=== PATIENT | female | born 1950 | race Caucasian/White ===

== ENCOUNTER 2022-10-25 16:01 | Emergency (ER) | payer OTHER, SELFPAY ==
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
[2022-10-25 16:05] VITALS: BP 182/100; PULSE 82; O2SAT 98
[2022-10-25 16:10] VITALS: BP 190/101; PULSE 79; RESP 18; TEMP 36.8; O2SAT 98; BMI 24.3
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
[2022-10-25] MEDS: Diphth,Pertus(ACell),Tet Adult 0.5 ML SYRINGE IM (18:36)
[2022-10-25] MEDS: Lidocaine HCl 1 % MPF 5 ML VIAL SUBCUT (18:37)
== END 2022-10-25 19:03 | disposition home or self-care (01) ==
PROVIDERS: Emergency Provider Emergency Medicine; PCP Physician Assistant
DX: S61.411A Laceration without foreign body of right hand, initial encounter (principal); S60.511A Abrasion of right hand, initial encounter; R51.9 Headache, unspecified; M79.641 Pain in right hand; V43.52XA Car driver injured in collision with other type car in traffic accident, initial encounter; Y93.9 Activity, unspecified; Y92.410 Unspecified street and highway as the place of occurrence of the external cause; Y99.9 Unspecified external cause status
CPT/HCPCS: 12001; 70450; 73110; 73130; 90471; 90715; 99282; 99284